=== PATIENT | male | born 1955 | race Caucasian/White ===

== ENCOUNTER 2018-12-09 10:52 | Inpatient (IN) ==
[2018-12-09] MEDS ORDERED: BENZONATATE 100 MG CAPSULE PO ONE (11:44)
[2018-12-09] MEDS ORDERED: methylPREDNISolone 125 MG/2 ML VIAL IV STA ×2 (11:44→13:50)
[2018-12-09] MEDS ORDERED: levoFLOXacin 250 MG TABLET PO STA (11:44)
[2018-12-09] MEDS ORDERED: SODIUM CHLORIDE 0.9% 1000ML 1,000 ML IV SCH (11:45)
[2018-12-09 11:53] LABS: Basophils # (auto) 0.02 K/uL (0-0.2); Basophils % (auto) 0.3 %; Eosinophils # (auto) 0.01 K/uL (0-0.5); Eosinophils % (auto) 0.1 %; Hematocrit (blood only) 46.1 % (42-52); Hemoglobin 15.5 g/dL (14.0-18.0); Immature Granulocytes # (auto) 0.01 K/uL (0.00-0.02); Immature Granulocytes % (auto) 0.1 %; Lymphocytes % (auto) 11.7 %; Mean Corpuscular Hgb Conc 33.6 g/dL (32-36); Mean Corpuscular Volume 88.1 fL (80-100); Mean Platelet Volume 10.7 fL (7.4-10.4); Monocytes # (auto) 0.82 K/uL (0.11-0.59); Monocytes % (auto) 10.7 %; Neutrophils # (auto) 5.91 K/uL (1.4-6.5); Neutrophils % (auto) 77.1 %; Platelet Count 144 K/uL (130-400); RDW Coefficient of Variation 14.3 % (11.5-14.5); RDW Standard Deviation 46.2 fL (36.4-46.3); Red Blood Count 5.23 M/uL (4.7-6.1); White Blood Count 7.67 K/uL (4.8-10.8)
[2018-12-09 12:04] LABS: INR 1.1 (0.9-1.1); Partial Thromboplastin Ratio 1.1; Partial Thromboplastin Time 28.9 Seconds (21.0-31.0)
[2018-12-09 12:07] LABS: Alanine Aminotransferase 21 U/L (12-78); Albumin Level 3.7 gm/dl (3.4-5.0); Aspartate Aminotransferase 24 U/L (15-37); BUN Creatinine Ratio 10.6 (10-20); Blood Urea Nitrogen 13 mg/dl (7-18); Calcium 9.1 mg/dl (8.5-10.1); Carbon Dioxide 26 mmol/L (21-32); Chloride 105 mmol/L (98-107); Creatinine Clr Calc Pharmacy 90.3 ml/min; Est GFR (African American) 73.4; Est GFR (Non-African American) 63.3; Glucose 97 mg/dl (70-99); Potassium 2.9 mmol/L (3.5-5.1); Sodium 135 mmol/L (136-145)
[2018-12-09 12:12] LABS: Albumin Globulin Ratio 1.1 (0.9-2); Alkaline Phosphatase 99 U/L (45-117); Bilirubin,Total 0.5 mg/dl (0.2-1); Globulin 3.5 gm/dl (2.5-4.0); Total Protein 7.2 gm/dl (6.4-8.2); Troponin I < 0.015 ng/ml (0-0.045)
[2018-12-09 12:27] LABS: Influenza B virus by PCR Neg for Influ B (Neg)
--- NOTE | 2018-12-09 12:44 | XRay Report ---
XR chest 1V portable CLINICAL HISTORY: 63 years-old Male presenting with Dyspnea. TECHNIQUE: Portable upright AP view of the chest was obtained. COMPARISON: . FINDINGS: Cardiac silhouette top normal in size. Minimal basilar opacities. No pleural effusion or pneumothorax . Degenerative changes of the thoracic spine. Upper abdomen normal. IMPRESSION: 1. Minimal basilar opacities likely atelectasis or scarring. No convincing evidence of acute cardiop ulmonary disease. Electronically signed by: Karl Turpin M.D. 12/09/2018 12:42 PM
[2018-12-09] MEDS ORDERED: POTASSIUM CHLORIDE 10 MEQ TABCR PO STA (13:37)
[2018-12-09] MEDS ORDERED: OSELTAMIVIR PHOSPHATE 75 MG CAP PO STA (13:49)
[2018-12-09] MEDS ORDERED: ALBUTEROL 0.083% NEBU SOLN 3 ML VIAL NEB STA ×2 (13:50→13:56)
--- NOTE | 2018-12-09 14:24 | History & Physical Report ---
Addendum entered and electronically signed by Tamia Villaseñor PA-C 12/09/18 15:03: Addendum (Blank) Addendum December 09, 2018 15:02 Assessment & Plan: Acute Hypoxic Respiratory Failure secondary to Influenza Original Note: Date of Service December 09, 2018 Assessment & Plan (1) Influenza A: - Admit to med surg - Supportive tx with duonebs, mucinex, tamiflu, O2 prn - Continue home Advair BID and Proair prn - consider outpatient referral/CM assistance for home duoneb, pt does not have one at home but reports this would be beneficial. - Pt received solumedrol 125 mcg in the ER, and 1 dose of Levaquin. Will hold off on further steroids and antibiotics at this time. Pt reports sx are slowing improving since having the steriod and getting a neb treatment at bedside. - Respiratory droplet precautions - CXR reviewed as above. - Currently tachycardic secondary to acute illness, checking EKG. 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 - Request outpatient referral/CM assistance for home duoneb/machine, pt does not have one at home but reports this would be beneficial. 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 Pt notes his symptoms started on morning, and that has progressively had some shortness of breath with minimal activites. He denies fever, chills or sweats. Tolerating PO intake without difficulty. He has no other acute complaint. Pt found to be hypoxic with O2 sat= 85% in the ER, Influenza A positive. Allergies Allergy/AdvReac Type Severity Reaction Status Date / Time No Known Allergies Allergy Unverified 12/09/18 12:02 Home Medications Home Medications Medication Instructions Recorded Confirmed Type fluticasone-salmeterol [Advair 1 puff INHALATION BID 08/21/18 12/09/18 History Diskus] hydrochlorothiazide 1 tab PO DAILY 08/21/18 12/09/18 History omeprazole 1 cap PO DAILY 08/21/18 12/09/18 History albuterol sulfate [ProAir HFA] 1 puff INHALATION QID PRN 12/09/18 12/09/18 History Past Med/Surg History Medical History Acute respiratory failure with hypoxia Influenza A COPD (chronic obstructive pulmonary disease) GERD (gastroesophageal reflux disease) (Chronic) Asthma (Chronic) Hypertension (Chronic) Family History Other Asthma GERD (gastroesophageal reflux disease) Hypertension Social History marital status: Current Living Situation: Spouse and Family current occupational status: retired Other Information That Helps Us Care for You: No Feels Safe at Home: Yes Safety Concerns: Feels Safe At This Time Smoking Status: Never smoker Tobacco Type: smokeless tobacco Do You Dip or Chew Tobacco: Yes (1/3 can a day) Second Hand Exposure: No Tobacco Cessation Education Requested by Patient: No Hx Alcohol Use: No Hx Substance Use: No Beliefs That Will Affect Care: None Preferred Language: Malay Communication Ability: Effective Fast Food Server Required: No Review of Systems Constitutional: no fever, no chills, no sweats and no fatigue Eyes: no diplopia and no worsening vision Ear, Nose, Mouth, Throat: no dizziness, no nasal discharge, no facial pain and no sore throat Respiratory: as per Subjective / HPI, + cough, + dyspnea and + dyspnea on exertion; no hemoptysis and no wheezing Cardiovascular: no chest pain, no palpitations, no lightheadedness and no syncope Gastrointestinal: no nausea, no vomiting and no constipation no diarrhea Genitourinary (Male): no dysuria, no urinary frequency, no urinary hesitancy and no hematuria Musculoskeletal: no back pain, no joint pain, no swelling and no muscle weakness Integumentary: no rash, no lesions and no wounds Neurologic: no gait abnormality, no falls, no numbness, no dizziness and no syncope Psychiatric: no depression and no anxiety Endocrine: no fatigue Physical Exam 2 Vital Signs (Past 24 Hours): Last Vital Signs Temp 37.2 C 12/09/18 11:05 Pulse 102 H 12/09/18 13:37 Resp 20 12/09/18 13:37 BP 126/84 12/09/18 13:37 Pulse Ox 93 12/09/18 13:41 Physical Exam: General: awake, alert, mild distress Head: Normocephalic, atraumatic ENT: PERRL, EOMI, no pharyngeal exudate, mucous membranes moist Chest: + on 2 L via NC, using accessory muscles, + diminished breaths sounds throughout with faint crackles in the RLL. Cardiac: Regular rhythm, Tachycardic in low 100s at bedside, no murmur, no JVD, normal peripheral pulses, good capillary refill Abdominal: NABS x 4 quadrants, soft, nontender to palpation, no rebound, guarding or tenderness Extremities: Normal inspection, no peripheral edema or erythema, calfs nontender to palpation Psych: Normal mood and affect Neuro: AAO x 3, strength intact bilaterally and related 5/5, no motor deficits, speech is clear, no peripheral sensory deficits Constitutional: WD/WN, vitals as above Eyes: normal visual carrillo by confrontation and + anicteric sclerae Neck: normal visual inspection and trachea midline Respiratory: no respiratory distress congestive sounds Cardiovascular: Rate/Rhythm: regular rate and regular rhythm Gastrointestinal (Abdomen): Inspection/Auscultation: abdomen not distended Percussion/Palpation: abdomen soft; abdomen nontender Musculoskeletal: Head/Neck/Chest: normocephalic and head atraumatic negative for edema, peripheral pulses intact Skin: no rashes, warm and dry Neurologic: awake; not confused Speech / Cognition: normal speech Psychiatric: A+Ox3, euthymic affect Results & Data Diagnostic Findings XR chest 1V portable CLINICAL HISTORY: 63 years-old Male presenting with Dyspnea. TECHNIQUE: Portable upright AP view of the chest was obtained. COMPARISON: . FINDINGS: Cardiac silhouette top normal in size. Minimal basilar opacities. No pleural effusion or pneumothorax. Degenerative changes of the thoracic spine. Upper abdomen normal. IMPRESSION: 1. Minimal basilar opacities likely atelectasis or scarring. No convincing evidence of acute cardiopulmonary disease. Code Status & VTE Plan Code Status DNR Supervising Physician Co-Signing Physician Notes Pt seen and examined by me. Denies chest pain or current SOB. Pt did have SOB earlier but this is much better. Still with cough. Tolerating PO without issue. Agree with HPI/ROS as noted by PA See above for my exam in PE section Agree with plan as outlined above Flu A +, management as above Hx of COPD related to occupational exposure, no current exacerbation, prevention as above Hypoxic on RA
[2018-12-09 15:02] LABS: Appearance Urine Clear (Clear); Bilirubin Urine Negative (Negative); Color Urine Yellow; Glucose Urine UA Negative (Negative); Ketones Urine Negative (Negative); Leukocyte Esterase Urine Negative (Negative); Nitrite Urine Negative (Negative); Protein Urine Negative (Negative); Specific Gravity Urine 1.011 (1.000-1.030); Urobilinogen Urine Negative (Negative); pH Urine 5.5 (4.5-7.5)
[2018-12-09] MEDS ORDERED: ACETAMINOPHEN 325 MG TAB PO PRN (16:02)
[2018-12-09] MEDS ORDERED: ONDANSETRON INJ 2 MG/ML 2 ML VIAL IV PRN (16:02)
[2018-12-09] MEDS: ALBUT/IPRATROP 3MG/0.5MG NEB 3 ML VIAL NEB SCH ×3 (16:21→23:10)
--- NOTE | 2018-12-09 17:25 | Emergency Department Note ---
Entered by Ninfa Ingram acting as a scribe for History of Present Illness General Chief complaint: Cough Stated complaint: CHRONIC COUGH,LOW FEVR,ARDON Source: patient Mode of arrival: ambulatory Limitations: no limitations History of Present Illness Provider complaint: Cough Onset (ago): day(s) (3-4 days ago) Location: mouth Radiation: non-radiation Pain Consistency: + other (worsening) Maximum Pain Intensity: 8 Quality: + other (cough with occasional clear phlegm) Relieved By: + none Associated symptoms: + headaches (throbbing) and + other (Additional symptoms: rhinorrhea, sore throat, abdominal pain. Denies: ear pain) Treatments prior to arrival: none The patient is a 63 year old male with a history of COPD, asthma, GERD, and hypertension who presents to the Emergency Room with complaints of a worsening cough starting 3-4 days ago. The patient reports that his cough started in his chest and has been accompanied by occasional clear phlegm, rhinorrhea, a sore throat, throbbing headaches, and abdominal pain secondary to coughing. He denies any ear pain and recent sick contact. Per , the patient has never smoked. No other exacerbating or remitting factors. Patient does note that exertion makes the shortness of breath worse. Home Medications Home Medications Medication Instructions Recorded Confirmed Type fluticasone-salmeterol [Advair 1 puff INHALATION BID 08/21/18 12/09/18 History Diskus] hydrochlorothiazide 1 tab PO DAILY 08/21/18 12/09/18 History omeprazole 1 cap PO DAILY 08/21/18 12/09/18 History albuterol sulfate [ProAir HFA] 1 puff INHALATION QID PRN 12/09/18 12/09/18 History Allergies Allergy/AdvReac Type Severity Reaction Status Date / Time No Known Allergies Allergy Unverified 12/09/18 12:02 Past Med/Surg History Medical History Acute respiratory failure with hypoxia Influenza A COPD (chronic obstructive pulmonary disease) GERD (gastroesophageal reflux disease) (Chronic) Asthma (Chronic) Hypertension (Chronic) Family History Other Asthma GERD (gastroesophageal reflux disease) Hypertension Social History marital status: Current Living Situation: Spouse and Family current occupational status: retired Other Information That Helps Us Care for You: No Feels Safe at Home: Yes Safety Concerns: Feels Safe At This Time Smoking Status: Never smoker Tobacco Type: smokeless tobacco Do You Dip or Chew Tobacco: Yes (1/3 can a day) Second Hand Exposure: No Tobacco Cessation Education Requested by Patient: No Hx Alcohol Use: No Hx Substance Use: No Beliefs That Will Affect Care: None Preferred Language: Kuwaiti Communication Ability: Effective 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 and A total of 10 systems reviewed and were otherwise negative Physical Exam Vital Signs Vital Signs - 24 hr 12/09/18 11:05 12/09/18 11:23 12/09/18 11:24 Temperature 37.2 C Temperature Source Oral Sepsis Recent Fever Within 48 Hours No Sepsis New/Unexplained Change in Mental Status No Sepsis Action Taken by Nursing No Action Required Pulse Rate 108 H 104 H Pulse Rate [Finger] Pulse Rhythm [Finger] Pulse Strength [Finger] Respiratory Rate 20 Respiratory Effort / Characteristics Non-Labored Respiratory Depth Normal Respiratory Pattern Blood Pressure 134/90 126/84 Blood Pressure [Right Arm] Blood Pressure Mean 104 98 Blood Pressure Mean [Right Arm] Blood Pressure Position [Right Arm] Pulse Oximetry 93 Oxygen Delivery Method Room Air Oxygen Flow Rate 12/09/18 11:30 12/09/18 11:40 12/09/18 11:50 Temperature Temperature Source Sepsis Recent Fever Within 48 Hours Sepsis New/Unexplained Change in Mental Status Sepsis Action Taken by Nursing Pulse Rate 105 H 104 H 98 H Pulse Rate [Finger] Pulse Rhythm [Finger] Pulse Strength [Finger] Respiratory Rate Respiratory Effort / Characteristics Respiratory Depth Respiratory Pattern Blood Pressure Blood Pressure [Right Arm] Blood Pressure Mean Blood Pressure Mean [Right Arm] Blood Pressure Position [Right Arm] Pulse Oximetry 93 91 90 Oxygen Delivery Method Oxygen Flow Rate 12/09/18 11:59 12/09/18 12:00 12/09/18 12:10 Temperature Temperature Source Sepsis Recent Fever Within 48 Hours Sepsis New/Unexplained Change in Mental Status Sepsis Action Taken by Nursing Pulse Rate 102 H 88 Pulse Rate [Finger] 101 H Pulse Rhythm [Finger] Pulse Strength [Finger] Respiratory Rate 20 43 H Respiratory Effort / Characteristics Respiratory Depth Respiratory Pattern Blood Pressure Blood Pressure [Right Arm] 126/84 Blood Pressure Mean Blood Pressure Mean [Right Arm] 98 Blood Pressure Position [Right Arm] Pulse Oximetry 91 90 91 Oxygen Delivery Method Room Air Oxygen Flow Rate 12/09/18 12:20 12/09/18 12:30 12/09/18 12:40 Temperature Temperature Source Sepsis Recent Fever Within 48 Hours Sepsis New/Unexplained Change in Mental Status Sepsis Action Taken by Nursing Pulse Rate 92 H 93 H 95 H Pulse Rate [Finger] Pulse Rhythm [Finger] Pulse Strength [Finger] Respiratory Rate Respiratory Effort / Characteristics Respiratory Depth Respiratory Pattern Blood Pressure Blood Pressure [Right Arm] Blood Pressure Mean Blood Pressure Mean [Right Arm] Blood Pressure Position [Right Arm] Pulse Oximetry 91 90 90 Oxygen Delivery Method Oxygen Flow Rate 12/09/18 12:50 12/09/18 12:56 12/09/18 13:00 Temperature Temperature Source Sepsis Recent Fever Within 48 Hours Sepsis New/Unexplained Change in Mental Status Sepsis Action Taken by Nursing Pulse Rate 104 H 96 H Pulse Rate [Finger] 102 H Pulse Rhythm [Finger] Pulse Strength [Finger] Respiratory Rate 20 Respiratory Effort / Characteristics Respiratory Depth Respiratory Pattern Blood Pressure Blood Pressure [Right Arm] 126/84 Blood Pressure Mean Blood Pressure Mean [Right Arm] 98 Blood Pressure Position [Right Arm] Pulse Oximetry 92 91 88 L Oxygen Delivery Method Room Air Oxygen Flow Rate 12/09/18 13:10 12/09/18 13:20 12/09/18 13:30 Temperature Temperature Source Sepsis Recent Fever Within 48 Hours Sepsis New/Unexplained Change in Mental Status Sepsis Action Taken by Nursing Pulse Rate 100 H 96 H 97 H Pulse Rate [Finger] Pulse Rhythm [Finger] Pulse Strength [Finger] Respiratory Rate 13 15 18 Respiratory Effort / Characteristics Respiratory Depth Respiratory Pattern Blood Pressure Blood Pressure [Right Arm] Blood Pressure Mean Blood Pressure Mean [Right Arm] Blood Pressure Position [Right Arm] Pulse Oximetry 88 L 87 L 87 L Oxygen Delivery Method Oxygen Flow Rate 12/09/18 13:37 12/09/18 13:40 12/09/18 13:41 Temperature Temperature Source Sepsis Recent Fever Within 48 Hours Sepsis New/Unexplained Change in Mental Status Sepsis Action Taken by Nursing Pulse Rate 103 H Pulse Rate [Finger] 102 H Pulse Rhythm [Finger] Pulse Strength [Finger] Respiratory Rate 20 13 Respiratory Effort / Characteristics Respiratory Depth Respiratory Pattern Blood Pressure Blood Pressure [Right Arm] 126/84 Blood Pressure Mean Blood Pressure Mean [Right Arm] 98 Blood Pressure Position [Right Arm] Pulse Oximetry 94 91 93 Oxygen Delivery Method Room Air Nasal Cannula Oxygen Flow Rate 3 12/09/18 13:50 12/09/18 14:00 12/09/18 14:10 Temperature Temperature Source Sepsis Recent Fever Within 48 Hours Sepsis New/Unexplained Change in Mental Status Sepsis Action Taken by Nursing Pulse Rate 95 H 92 H 93 H Pulse Rate [Finger] Pulse Rhythm [Finger] Pulse Strength [Finger] Respiratory Rate 21 25 H 14 Respiratory Effort / Characteristics Respiratory Depth Respiratory Pattern Blood Pressure Blood Pressure [Right Arm] Blood Pressure Mean Blood Pressure Mean [Right Arm] Blood Pressure Position [Right Arm] Pulse Oximetry 90 90 93 Oxygen Delivery Method Oxygen Flow Rate 12/09/18 14:20 12/09/18 14:30 12/09/18 14:40 Temperature Temperature Source Sepsis Recent Fever Within 48 Hours Sepsis New/Unexplained Change in Mental Status Sepsis Action Taken by Nursing Pulse Rate 99 H 99 H 92 H Pulse Rate [Finger] Pulse Rhythm [Finger] Pulse Strength [Finger] Respiratory Rate 9 L 16 26 H Respiratory Effort / Characteristics Respiratory Depth Respiratory Pattern Blood Pressure Blood Pressure [Right Arm] Blood Pressure Mean Blood Pressure Mean [Right Arm] Blood Pressure Position [Right Arm] Pulse Oximetry 94 94 91 Oxygen Delivery Method Oxygen Flow Rate 12/09/18 14:50 12/09/18 15:00 12/09/18 15:23 Temperature Temperature Source Sepsis Recent Fever Within 48 Hours Sepsis New/Unexplained Change in Mental Status Sepsis Action Taken by Nursing Pulse Rate 90 98 H Pulse Rate [Finger] Pulse Rhythm [Finger] Pulse Strength [Finger] Respiratory Rate 21 22 18 Respiratory Effort / Characteristics Respiratory Depth Respiratory Pattern Blood Pressure Blood Pressure [Right Arm] Blood Pressure Mean Blood Pressure Mean [Right Arm] Blood Pressure Position [Right Arm] Pulse Oximetry 91 93 92 Oxygen Delivery Method Nasal Cannula Oxygen Flow Rate 3 12/09/18 15:24 12/09/18 16:02 12/09/18 16:21 Temperature 36.7 C Temperature Source Oral Sepsis Recent Fever Within 48 Hours Sepsis New/Unexplained Change in Mental Status Sepsis Action Taken by Nursing Pulse Rate Pulse Rate [Finger] 96 H 90 89 Pulse Rhythm [Finger] Pulse Strength [Finger] Respiratory Rate 18 20 16 Respiratory Effort / Characteristics Non-Labored Spontaneous Respiratory Depth Respiratory Pattern Blood Pressure Blood Pressure [Right Arm] 101/68 124/76 Blood Pressure Mean Blood Pressure Mean [Right Arm] 79 92 Blood Pressure Position [Right Arm] Sitting Pulse Oximetry 92 95 94 Oxygen Delivery Method Nasal Cannula Nasal Cannula Room Air Oxygen Flow Rate 3 3 12/09/18 16:44 Temperature 36.7 C Temperature Source Oral Sepsis Recent Fever Within 48 Hours Sepsis New/Unexplained Change in Mental Status Sepsis Action Taken by Nursing Pulse Rate Pulse Rate [Finger] 89 Pulse Rhythm [Finger] Regular Pulse Strength [Finger] Normal Respiratory Rate 18 Respiratory Effort / Characteristics Spontaneous SOB on Exertion Respiratory Depth Normal Respiratory Pattern Regular Blood Pressure Blood Pressure [Right Arm] 124/76 Blood Pressure Mean Blood Pressure Mean [Right Arm] 92 Blood Pressure Position [Right Arm] Sitting Pulse Oximetry 93 Oxygen Delivery Method Nasal Cannula Oxygen Flow Rate 2 GENERAL: Sitting up in bed, alert, well appearing, well nourished, no distress, non-toxic, dry persistent cough EYE EXAM: normal conjunctiva. PERRL and EOM's grossly intact. OROPHARYNX: no exudate, no erythema, lips, buccal mucosa, and tongue normal and mucous membranes are moist NECK: supple, no nuchal rigidity, no adenopathy, non-tender LUNGS: Faint wheezing bilaterally. Normal chest wall mechanics HEART: no murmurs, S1 normal and S2 normal, tachycardic ABDOMEN: abdomen soft, non-tender, normo-active bowel, sounds, no masses, no rebound or guarding. BACK: Back is symmetrical on inspection and there is no deformity, no midline tenderness, no CVA tenderness. SKIN: no rashes and no bruising UPPER EXTREMITIES: upper extremities are grossly normal. LOWER EXTREMITIES: No pitting edema. Calves equal bilaterally NEURO EXAM: Normal sensorium, cranial nerves II-XII grossly intact, normal speech, no gross weakness of arms, no gross weakness of legs. Gross sensation intact. Course ED COURSE: Vital signs were reviewed and were normal. The patients medical record was reviewed The above diagnostic studies were performed and reviewed. ED treatments and interventions as stated above. 1139: The patient was evaluated in room B7. A complete history and physical examination was performed. 1338: I updated the patient at bedside at this time. 1355: I [facility] the [facility] will evaluate the patient for further management. 1358: Upon reevaluation, the patient is resting. I discussed my findings with the patient and he understands and agrees with the treatment plan. Based on the patients age, coexisting illnesses, exam and lab findings the decision to treat as an inpatient was made. The patient remained stable while under my care. The patient will be evaluated for further management. Consultations Consultation #1: I reviewed the patient's case with Rafael Salazar. Dr. Hernandez will evaluate the patient for further management. Time: 13:55 Administered Medications Albuterol (Duoneb) 3 ml NEB Q4R BAIRON Stop: 01/08/19 16:01 Last Admin: 12/09/18 16:21 Dose: 3 ml Discontinued Medications Albuterol (Ventolin 0.083% 2.5mg/3ml) 2.5 mg NEB NOW STA Stop: 12/09/18 13:51 Last Admin: 12/09/18 14:04 Dose: 2.5 mg Albuterol (Ventolin 0.083% 2.5mg/3ml) 2.5 mg NEB NOW STA Stop: 12/09/18 13:57 Last Admin: 12/09/18 14:09 Dose: Not Given Benzonatate (Tessalon Perle) 100 mg PO NOW ONE Stop: 12/09/18 11:45 Last Admin: 12/09/18 11:57 Dose: 100 mg Sodium Chloride (Nss 1000ml) 1,000 mls @ 999 mls/hr IV .Q1H1M BAIRON Stop: 12/09/18 12:45 Last Infusion: 12/09/18 13:04 Dose: 0 mls/hr Admin: 12/09/18 11:56 Dose: 999 mls/hr Levofloxacin (Levaquin) 750 mg PO NOW STA Stop: 12/09/18 11:45 Last Admin: 12/09/18 11:57 Dose: 750 mg Methylprednisolone (Solumedrol) 125 mg IV NOW STA Stop: 12/09/18 11:45 Last Admin: 12/09/18 11:57 Dose: 125 mg Oseltamivir Phosphate (Tamiflu) 75 mg PO NOW STA Stop: 12/09/18 13:50 Last Admin: 12/09/18 14:03 Dose: 75 mg Potassium Chloride (Klor-Con M10) 40 meq PO NOW STA Stop: 12/09/18 13:38 Last Admin: 12/09/18 14:03 Dose: 40 meq Medical Decision Making Differential Diagnosis Differential diagnosis: Etiologies such as infections, reactive airway disease, COPD, pneumonia, pleural effusion, pulmonary edema, ARDS, pneumothorax, CHF, cardiac ischemia, cardiac tamponade, dysrhythmia, anemia, pulmonary embolism, musculoskeletal, gastrointestinal process, as well as others were entertained. Medical Records Attestation: I reviewed the patient's medical records. Home Medications Current Medication List: was personally reviewed by me Laboratory Data Attestation: I reviewed the patient's lab results. Result diagrams: 12/09/18 11:30 12/09/18 11:30 Lab Results 12/09/18 12/09/18 12/09/18 Range/Units 11:30 11:30 11:30 WBC 7.67 (4.8-10.8) K/uL RBC 5.23 (4.7-6.1) M/uL Hgb 15.5 (14.0-18.0) g/dL Hct 46.1 (42-52) % MCV 88.1 (80-100) fL MCH 29.6 (25-34) pg MCHC 33.6 (32-36) g/dL RDW Std Deviation 46.2 (36.4-46.3) fL RDW Coeff of Mason 14.3 (11.5-14.5) % Plt Count 144 (130-400) K/uL MPV 10.7 H (7.4-10.4) fL Immature Gran % (Auto) 0.1 % Neut % (Auto) 77.1 % Lymph % (Auto) 11.7 % Mccormick % (Auto) 10.7 % Eos % (Auto) 0.1 % Baso % (Auto) 0.3 % Immature Gran # (Auto) 0.01 (0.00-0.02) K/uL Neut # (Auto) 5.91 (1.4-6.5) K/uL Lymph # (Auto) 0.90 L (1.2-3.4) K/uL Mccormick # (Auto) 0.82 H (0.11-0.59) K/uL Eos # (Auto) 0.01 (0-0.5) K/uL Baso # (Auto) 0.02 (0-0.2) K/uL PT 11.0 (9.0-12.0) Seconds INR 1.1 (0.9-1.1) APTT 28.9 (21.0-31.0) Seconds PTT Ratio 1.1 Sodium (136-145) mmol/L Potassium (3.5-5.1) mmol/L Chloride (98-107) mmol/L Carbon Dioxide (21-32) mmol/L Anion Gap (3-11) BUN (7-18) mg/dl Creatinine (0.6-1.4) mg/dl Est Cr Clr Drug Dosing ml/min Est GFR ( Amer) Est GFR (Non-Af Amer) BUN/Creatinine Ratio (10-20) Glucose (70-99) mg/dl Calcium (8.5-10.1) mg/dl Total Bilirubin (0.2-1) mg/dl AST (15-37) U/L ALT (12-78) U/L Alkaline Phosphatase (45-117) U/L Troponin I Cancelled Total Protein (6.4-8.2) gm/dl Albumin (3.4-5.0) gm/dl Globulin (2.5-4.0) gm/dl Albumin/Globulin Ratio (0.9-2) Urine Color Urine Appearance (Clear) Urine pH (4.5-7.5) Ur Specific [place] (1.000-1.030) Urine Protein (Negative) Urine Glucose (UA) (Negative) Urine Ketones (Negative) Urine Blood (Negative) Urine Nitrite (Negative) Urine Bilirubin (Negative) Urine Urobilinogen (Negative) Ur Leukocyte Esterase (Negative) Influenza Type A (PCR) (Neg) Influenza Type B (PCR) (Neg) 12/09/18 12/09/18 12/09/18 Range/Units 11:30 11:30 14:30 WBC (4.8-10.8) K/uL RBC (4.7-6.1) M/uL Hgb (14.0-18.0) g/dL Hct (42-52) % MCV (80-100) fL MCH (25-34) pg MCHC (32-36) g/dL RDW Std Deviation (36.4-46.3) fL RDW Coeff of Mason (11.5-14.5) % Plt Count (130-400) K/uL MPV (7.4-10.4) fL Immature Gran % (Auto) % Neut % (Auto) % Lymph % (Auto) % Mccormick % (Auto) % Eos % (Auto) % Baso % (Auto) % Immature Gran # (Auto) (0.00-0.02) K/uL Neut # (Auto) (1.4-6.5) K/uL Lymph # (Auto) (1.2-3.4) K/uL M[place]ick # (Auto) (0.11-0.59) K/uL Eos # (Auto) (0-0.5) K/uL Baso # (Auto) (0-0.2) K/uL PT (9.0-12.0) Seconds INR (0.9-1.1) APTT (21.0-31.0) Seconds PTT Ratio Sodium 135 L (136-145) mmol/L Potassium 2.9 L (3.5-5.1) mmol/L Chloride 105 (98-107) mmol/L Carbon Dioxide 26 (21-32) mmol/L Anion Gap 4.0 (3-11) BUN 13 (7-18) mg/dl Creatinine 1.21 (0.6-1.4) mg/dl Est Cr Clr Drug Dosing 90.3 ml/min Est GFR ( Amer) 73.4 Est GFR (Non-Af Amer) 63.3 BUN/Creatinine Ratio 10.6 (10-20) Glucose 97 (70-99) mg/dl Calcium 9.1 (8.5-10.1) mg/dl Total Bilirubin 0.5 (0.2-1) mg/dl AST 24 (15-37) U/L ALT 21 (12-78) U/L Alkaline Phosphatase 99 (45-117) U/L Troponin I < 0.015 Total Protein 7.2 (6.4-8.2) gm/dl Albumin 3.7 (3.4-5.0) gm/dl Globulin 3.5 (2.5-4.0) gm/dl Albumin/Globulin Ratio 1.1 (0.9-2) Urine Color Yellow Urine Appearance Clear (Clear) Urine pH 5.5 (4.5-7.5) Ur Specific [place] 1.011 (1.000-1.030) Urine Protein Negative (Negative) Urine Glucose (UA) Negative (Negative) Urine Ketones Negative (Negative) Urine Blood Negative (Negative) Urine Nitrite Negative (Negative) Urine Bilirubin Negative (Negative) Urine Urobilinogen Negative (Negative) Ur Leukocyte Esterase Negative (Negative) Influenza Type A (PCR) Pos for Influ A A* (Neg) Influenza Type B (PCR) Neg for Influ B (Neg) ECG Data Attestation: I personally reviewed and interpreted this ECG as follows: Indication: other (cough) Rate (beats per minute): 101 Rhythm: sinus tachycardia Findings: + other (poor baseline) and + left axis deviation Blood Pressure Blood Pressure Findings: Normal blood pressure MDM Narrative Patient is a 63-year-old male who presents the ER for cough, congestion sore throat and shortness of breath for the past 3-4 days. Upon presentation is found to be hypoxic at 85-89%. He was placed on 2 L nasal cannula. 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 He was given nebs, steroids and antibiotics. CBC shows no significant leukocytosis or anemia. INR was unremarkable. BMP with a mild hypokalemia. LFTs troponin were normal. UA was negative. He was positive for influenza. He was given Tamiflu. He was updated bedside along with his . Discussed with the hospitalist and patient was admitted with hypoxia secondary to influenza A. Of note chest x- ray showed some atelectasis but no focal infiltrate. Impression & Plan Influenza, Hypoxia Discharge Plan Visit Data *Final* Discharge Date/Time: 12/09/18 15:23 Chief Complaint: Cough Stated Complaint: CHRONIC COUGH,LOW FEVR,ARDON ED Provider: Luisito Alarcon Discharge Problem: Influenza, Hypoxia Patient Disposition: Admitted As Inpatient Discharge Instructions Interventions: ED Discharge Assessment Last Done: 12/09/18 15:23 The scribe's documentation has been prepared under my direction and personally reviewed by me in its entirety. I confirm that the note above accurately reflects all work, treatment, procedures, and medical decision making performed by me.
[2018-12-09] MEDS: ENOXAPARIN INJ 40 MG/0.4 ML SYR SQ SCH (18:24)
[2018-12-09] MEDS ORDERED: PNEUMOCOCCAL ADMINISTRATION CHARGE ONE (18:30)
[2018-12-09] MEDS ORDERED: PNEUMOCOCCAL POLYSACCHARIDES 25 MCG/0.5 ML VIAL/SYR IM ONE (18:30)
[2018-12-09] MEDS: OSELTAMIVIR PHOSPHATE 75 MG CAP PO SCH (20:11)
[2018-12-09] MEDS: guaiFENesin 600 MG TABCR PO SCH (20:11)
[2018-12-10] MEDS: ALBUT/IPRATROP 3MG/0.5MG NEB 3 ML VIAL NEB SCH ×7 (03:15→23:32)
[2018-12-10] MEDS: guaiFENesin 600 MG TABCR PO SCH ×2 (08:25→20:22)
[2018-12-10] MEDS: OSELTAMIVIR PHOSPHATE 75 MG CAP PO SCH ×2 (08:25→20:22)
[2018-12-10 09:03] LABS: Hematocrit (blood only) 41.8 % (42-52); Hemoglobin 14.4 g/dL (14.0-18.0); Mean Corpuscular Hgb Conc 34.4 g/dL (32-36); Mean Corpuscular Volume 88.4 fL (80-100); Mean Platelet Volume 10.1 fL (7.4-10.4); Platelet Count 147 K/uL (130-400); RDW Coefficient of Variation 14.3 % (11.5-14.5); RDW Standard Deviation 46.7 fL (36.4-46.3); Red Blood Count 4.73 M/uL (4.7-6.1); White Blood Count 6.59 K/uL (4.8-10.8)
[2018-12-10] MEDS: FLUTICASONE/SALMETEROL (ADVAIR) 500/50 INH 14 PUFF INH SCH ×2 (09:34→20:02)
[2018-12-10] MEDS: PANTOprazole 40 MG TAB PO SCH (09:34)
[2018-12-10 09:36] LABS: BUN Creatinine Ratio 17.5 (10-20); Calcium 9.2 mg/dl (8.5-10.1); Est GFR (African American) 78.1; Est GFR (Non-African American) 67.4; Potassium 2.9 mmol/L (3.5-5.1)
[2018-12-10] MEDS: POTASSIUM CHLORIDE 20 MEQ TABCR PO SCH ×2 (11:30→20:23)
[2018-12-10] MEDS ORDERED: BENZONATATE 100 MG CAPSULE PO PRN (15:53)
[2018-12-10] MEDS: predniSONE 20 MG TAB PO SCH (15:58)
--- NOTE | 2018-12-10 16:31 | Hospitalist Progress Note ---
Date of Service December 10, 2018 Assessment & Plan (1) Acute respiratory failure with hypoxia: - Has been requiring 3L via NC; is stable on room air at home. - CXR on admission showed minimal basilar opacities, likely atelectasis vs. scarring. - Will continue to monitor O2 requirements. - Start Prednisone 40 mg PO daily in setting of asthma for acute inflammation; did receive Solu-medrol 125 mg IV in ER. (2) Influenza A: - +Influenza A in ER. - Started Tamiflu 75 mg PO BID. - Mucinex 1200 mg PO BID. - Duonebs QID scheduled. 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 - Will need duoneb machine at discharge, discuss with field case manager. - Continue home Advair BID with Duonebs QID as inpt. - Start Prednisone 40 mg PO daily. (4) GERD (gastroesophageal reflux disease): - Continue Protonix 40 mg qAM. (5) Hypertension: - Hold HCTZ in setting of hypokalemia. (6) Hypokalemia: - K level 2.9 -- ordered KCl 40 mEq BID. - Repeat level in AM. (7) DVT prophylaxis: - Lovenox subQ daily. Dispo: Med/surg; discharge pending improvement in hypoxia. Will need f/u with PCP and duonebs arranged at home. Supervising Physician Co-Signing Physician Notes PA Supervision Note: I did not personally see or examine the patient today, but I verified all jerez points of SABAS Licona's assessment and plan with the following exceptions/ additions: None Subjective Pt. is doing well overall. He has a cough, non productive. Headache, muscle aches now resolved. He is still requiring 3L via NC. Denies SOB. Pt. does not require oxygen at home. Will continue to monitor. Review of Systems All systems reviewed & are unremarkable except as noted in HPI & below Constitutional: no fever and no chills Respiratory: + cough; no dyspnea and no dyspnea on exertion Cardiovascular: no chest pain, no palpitations and no edema Gastrointestinal: no abdominal pain, no nausea and no constipation Genitourinary (Male): no difficulty urinating Musculoskeletal: no myalgia Neurologic: no headache(s) Physical Exam 2 Vital Signs (Past 24 Hours): Last Vital Signs Temp 36.5 C 02/03/19 15:11 Pulse 75 12/10/18 15:22 Resp 18 12/10/18 15:22 BP 104/69 12/10/18 15:11 Pulse Ox 95 12/10/18 15:22 Physical Exam: General: Resting comfortably in no apparent distress HEENT: NC/AT; PERRLA with EOMI; [address] conjunctiva, MMM. Neck: Supple and nontender Cardiac: RRR w/o murmurs, gallops or rubs Lungs: on 3L via NC; clear throughout Abdomen: Bowel normoactive X 4; Nontender to palpation Extremities: Warm. No edema present Neuro: No focal weakness Skin: No rash Results & Data Laboratory Results 12/10/18 12/10/18 12/10/18 Range/Units 08:51 08:51 08:51 WBC 6.59 (4.8-10.8) K/uL RBC 4.73 (4.7-6.1) M/uL Hgb 14.4 (14.0-18.0) g/dL Hct 41.8 L (42-52) % MCV 88.4 (80-100) fL MCH 30.4 (25-34) pg MCHC 34.4 (32-36) g/dL RDW Std Deviation 46.7 H (36.4-46.3) fL RDW Coeff of Mason 14.3 (11.5-14.5) % Plt Count 147 (130-400) K/uL MPV 10.1 (7.4-10.4) fL Sodium 139 (136-145) mmol/L Potassium 2.9 L (3.5-5.1) mmol/L Chloride 102 (98-107) mmol/L Carbon Dioxide 27 (21-32) mmol/L Anion Gap 10.0 (3-11) BUN 20 H D (7-18) mg/dl Creatinine 1.15 (0.6-1.4) mg/dl Est Cr Clr Drug Dosing 95.0 ml/min Est GFR ( Amer) 78.1 Est GFR (Non-Af Amer) 67.4 BUN/Creatinine Ratio 17.5 (10-20) Glucose 126 H (70-99) mg/dl Calcium 9.2 (8.5-10.1) mg/dl Magnesium 2.2 (1.8-2.4) mg/dl
[2018-12-10] MEDS: ENOXAPARIN INJ 40 MG/0.4 ML SYR SQ SCH (18:22)
[2018-12-11] MEDS: ALBUT/IPRATROP 3MG/0.5MG NEB 3 ML VIAL NEB SCH ×3 (04:07→11:21)
[2018-12-11 07:06] LABS: BUN Creatinine Ratio 21.6 (10-20); Calcium 9.7 mg/dl (8.5-10.1); Creatinine Clr Calc Pharmacy 97.6 ml/min; Est GFR (African American) 80.6; Est GFR (Non-African American) 69.5; Magnesium 2.1 mg/dl (1.8-2.4); Potassium 3.7 mmol/L (3.5-5.1)
[2018-12-11] MEDS: predniSONE 20 MG TAB PO SCH (07:50)
[2018-12-11] MEDS: guaiFENesin 600 MG TABCR PO SCH (07:50)
[2018-12-11] MEDS: POTASSIUM CHLORIDE 20 MEQ TABCR PO SCH (07:51)
[2018-12-11] MEDS: FLUTICASONE/SALMETEROL (ADVAIR) 500/50 INH 14 PUFF INH SCH (07:52)
[2018-12-11] MEDS: OSELTAMIVIR PHOSPHATE 75 MG CAP PO SCH (07:53)
[2018-12-11] MEDS: PANTOprazole 40 MG TAB PO SCH (07:53)
--- NOTE | 2018-12-12 18:36 | Discharge Summary ---
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 Pt notes his symptoms started on morning, and that has progressively had some shortness of breath with minimal activites. He denies fever, chills or sweats. Tolerating PO intake without difficulty. He has no other acute complaint. Pt found to be hypoxic with O2 sat= 85% in the ER, Influenza A positive. Principal Diagnosis Influenza A; mild asthma exacerbation Discharge Exam Constitutional WD/WN, vitals as above Eyes + anicteric sclerae ENMT Ears: no hearing impairment Nose: + nasal discharge Throat: uvula midline; no posterior oropharynx abnormality Neck trachea midline Respiratory normal respiratory effort, lungs clear to auscultation Cardiovascular RRR, no murmur, no edema Gastrointestinal (Abdomen) Inspection/Auscultation: normal bowel sounds Percussion/Palpation: abdomen soft; abdomen nontender Musculoskeletal Head/Neck/Chest: normocephalic, head atraumatic and neck supple Skin no rashes, warm and dry Neurologic moves all extremities Psychiatric A+Ox3, euthymic affect Discharge Data Allergies Allergy/AdvReac Type Severity Reaction Status Date / Time No Known Allergies Allergy Unverified 12/09/18 12:02 Consultations 12/09/18 13:55 ED Decision to Admit Stat Hospital Course (1) Acute respiratory failure with hypoxia: -This was secondary to influenza A possibly a mild asthma exacerbation -Has been successfully weaned to room air with appropriate oxygenation even after ambulation - CXR on admission showed minimal basilar opacities, likely atelectasis vs. 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 (5) Hypertension: -Continue HCTZ daily Total Time Total Time Spent Total Time Spent (In Minutes): Greater than 30 minutes Discharge Plan Discharge Items Patient Disposition: Home - Self-Care Reason For Visit: INFLUENZA A Discharge Diagnosis: Influenza Discharge Goals: Decrease discomfort and Improve function Activity: Resume your previous activity Non-emergency contact: Primary Care Provider Call non-emergency contact if: you have any medication questions, your symptoms worsen and your temperature is above 101 Diet: Regular Addtl Provider Instructions: Low Oxygen Levels from Influenza A and Asthma Exacerbation: - Likely your need for oxygen was from the flu but it can cause an asthma flair as well. Given your occupational exposures in the past it can create a secondary asthma flair - Recommend to continue follow-up with your lung doctor (Dr. Trinidad). Recommend to also have a nebulizer machine at home. This is the pipe that you have been using here. Sometimes it is nice to have when you develop a cold or respiratory infection if your inhaler (Albuterol-rescue inhaler) doesn't work as well - In the meantime, recommend to continue to use your rescue inhaler as needed. This helps keep your airways open. - You may have a cough for the next week and sometimes longer. Recommend to try and cough through the day and get rid of mucus that you cough up. - We will taper down on some steroids over the next couple days. These steroids help open up the lungs as well. Thankfully there was no wheezing when listening to your lungs today. -- Prednisone 40 mg x 1 day ( start tomorrow 12/12) then 30 mg on 12/13 then 20 mg on 12/14 then 10 mg on 12/15 - You will need to finish a course of Tamiflu. You had a dose this morning so only need to take a dose tonight on 12/11 then resume twice a day on 12/12 and 12/13 then you will be done with the treatment. - Suspect that each day you should feel a little bit better. The cough can linger for a week or sometimes more. Do recommend to rest and take it easy but encourage to walk and make sure you take deep breaths. In some cases people can develop a pneumonia after having the flu so if you symptoms worsen, we would recommend you getting checked out by a medical provider. Prescriptions: New ipratropium-albuterol 0.5 mg-3 mg(2.5 mg base)/3 mL Solution For Nebulization 3 ml NEB QID PRN (Reason: SOB/Wheezing) 14 Days Qty: 160 RF: 0 oseltamivir [Tamiflu] 75 mg Capsule 75 mg PO BID Qty: 5 RF: 0 prednisone 10 mg tablet 10 mg PO DIRECTED 4 Days Qty: 10 RF: 0 benzonatate [Tessalon Perles] 100 mg Capsule 100 mg PO Q8H PRN (Reason: cough) 7 Days Qty: 21 RF: 0 Continue albuterol sulfate 90 mcg/actuation HFA aerosol inhaler 1 puff Inhalation QID PRN (Reason: Cold Symptoms) RF: 0 hydrochlorothiazide 50 mg tablet 1 tab PO DAILY RF: 0 fluticasone-salmeterol 500-50 mcg/dose blister with device 1 puff Inhalation BID RF: 0 omeprazole 20 mg capsule,delayed release(DR/EC) 1 cap PO DAILY RF: 0 Stand-Alone Forms: [facility] Discharge Orders: Discharge Order (Routine); Ordered 12/11/18 Ordered By: Kylie Meyers Admission Data Admit Date/Time: 12/09/18 14:25 Attending Provider: Obdulio Sanchez Admit Provider: Shona Hernandez Primary Care Provider: Colin Reyna Service: Medical Other Interventions: Discharge Summary Assessment (RN) Last Done: 12/11/18 13:16 Pending Studies at Discharge: No DC Date/Time DO NOT enter until pt leaves facility: 12/11/18 15:07
== END 2018-12-11 15:07 | disposition home or self-care (01) | DRG 193 ==
LOC: ED 10:52 → 4W 14:25 → SUATTDRO 14:25 → 4W 15:23
DX: Z79.899 Other long term (current) drug therapy; J10.1 Influenza due to other identified influenza virus with other respiratory manifestations; J45.909 Unspecified asthma, uncomplicated; E87.6 Hypokalemia; R51 Headache; J96.01 Acute respiratory failure with hypoxia; I10 Essential (primary) hypertension; F17.220 Nicotine dependence, chewing tobacco, uncomplicated; K21.9 Gastro-esophageal reflux disease without esophagitis; Z66 Do not resuscitate

== ENCOUNTER 2024-04-03 17:12 | Observation (INO) ==
[2024-04-03 17:48] LABS: Basophils % (auto) 1.2 %; Eosinophils # (auto) 0.32 K/uL (0.00-0.50); Eosinophils % (auto) 3.7 %; Hemoglobin 15.8 g/dl (14.0-18.0); Immature Granulocytes # (auto) 0.03 K/uL (0.01-0.20); Immature Granulocytes % (auto) 0.3 %; Lymphocytes # (auto) 1.62 K/uL (1.20-3.40); Lymphocytes % (auto) 18.8 %; Mean Corpuscular Hemoglobin 30.2 pg (25.0-34.0); Mean Corpuscular Hgb Conc 33.6 g/dL (32.0-36.0); Mean Corpuscular Volume 89.9 fL (80.0-100.0); Mean Platelet Volume 10.5 fL (9.4-12.4); Monocytes # (auto) 0.83 K/uL (0.11-0.59); Monocytes % (auto) 9.6 %; Neutrophils # (auto) 5.72 K/uL (1.40-6.50); Neutrophils % (auto) 66.4 %; Platelet Count 179 K/uL (130-400); RDW Coefficient of Variation 13.2 % (11.5-14.5); RDW Standard Deviation 43.8 fL (36.4-46.3); Red Blood Count 5.23 M/uL (4.70-6.10); White Blood Count 8.62 K/ul (4.8-10.8)
[2024-04-03 18:07] LABS: Albumin Globulin Ratio 1.6 (0.9-2); Albumin Level 4.1 gm/dl (3.4-5.0); BUN Creatinine Ratio 18.4 (10-20); Bilirubin,Total 0.5 mg/dl (0.2-1.0); Calcium 10.3 mg/dl (8.6-10.3); Creatinine Clr Calc Pharmacy 85.9 ml/min; Est GFR (African American) 86.1 ml/min; Est GFR (Non-African American) 74.3 ml/min; Globulin 2.6 gm/dl (2.5-4.0); Potassium 4.2 mmol/L (3.5-5.1); Total Protein 6.7 gm/dl (6.0-8.3)
--- NOTE | 2024-04-03 18:10 | Emergency Department Note ---
Impression & Plan Atrial fibrillation with rapid ventricular response, Shortness of breath, High serum chloride ED Provider Note NAME: HAILEE BURLESON AGE: 68 SEX: M : 1955 ARRIVES VIA: Walk-In INFORMANT: Patient ED PROVIDER(S): Luisito Alarcon DO CHIEF COMPLAINT: Shortness of breath/A-fib HPI: Patient is a 60-year-old male with a past medical history of hypertension, anxiety and prediabetes who presents to the ER for short of breath which has been going on for the past 2 weeks associated with intermittent cough. He notes this has continued. He denies any chest pain or belly pain. He does get a little lightheaded when he is up moving around. No dysuria, urgency, or frequency. He saw his PCP today who referred him in. ADDITIONAL HISTORY OBTAINED: Per HPI Chronic Medical/Social Conditions Affecting Care: Per HPI PAST MEDICAL HISTORY:See Below PAST SURGICAL HISTORY:See Below FAMILY HISTORY:See Below SOCIAL HISTORY:See Below HOME MEDICATIONS:See Below ALLERGIES:See Below VITALS:See Below PHYSICAL EXAMINATION: GENERAL: Sitting up in bed, alert, well appearing, well nourished, no distress, non-toxic EYE EXAM: normal conjunctiva. PERRL and EOM's grossly intact. OROPHARYNX: no exudate, no erythema, lips, buccal mucosa, and tongue normal and mucous membranes are moist NECK: supple, no nuchal rigidity, no adenopathy, non-tender LUNGS: Clear to auscultation. Normal chest wall mechanics HEART: Tachycardic and irregular regular, S1 normal and S2 normal ABDOMEN: abdomen soft, non-tender, normo-active bowel sounds, no masses, no rebound or guarding. BACK: Back is symmetrical on inspection and there is no deformity, no midline tenderness, no CVA tenderness. SKIN: no rashes and no bruising UPPER EXTREMITIES: upper extremities are grossly normal. LOWER EXTREMITIES: No pitting edema. NEURO EXAM: Normal sensorium, cranial nerves II-XII grossly intact, normal speech, no gross weakness of arms, no gross weakness of legs. MEDICAL DECISION MAKING: Patient is a 68-year-old male who presents the ER for the above-stated complaint. IV was established blood work was obtained. Labs show no significant leukocytosis or anemia. BMP with slightly elevated chloride. LFTs bilirubin was unremarkable. Troponin was negative. Mag was normal. TSH unremarkable. Patient was given IV labetalol and heart rate trended down to the 90s to 80s. Patient was updated at bedside. Discussed case with the hospitalist for further evaluation management treatment. Consults/Care Managements Discussions: Per [facility] Triage Nursing notes reviewed. Limited review of prior medical records performed Vital Signs: reviewed and remarkable for tachy Differential diagnosis: Cardiac ischemia, aortic dissection, pulmonary embolism, pneumothorax, pneumonia, pericarditis, myocarditis, esophageal rupture, GERD, cholecystitis, pancreatitis, musculoskeletal, as well as other pathologies. ER treatment provided: See below Diagnostics interpreted by me include EKG and cardiac monitoring as listed below: -Cardiac Monitoring: An order was placed for continuous cardiac monitoring. The monitor shows a rate of 122 with A-fib rhythm. -ECG: A-fib RVR rate of 108 Normal axis No PVCs QTc 420 -Laboratory studies:Interpreted by me as stated above in MDM and shown below. Imaging studies: Xrays: As interpreted by me:none CTs show: none Procedures:none Critical Care: None Past Med/Surg History Problem List (Updated 04/03/24 @ 21:37 by Luisito Alarcon DO) High serum chloride (Acute) Shortness of breath (Acute) Asthma exacerbation Atrial fibrillation with rapid ventricular response (Acute) Generalized headaches Prediabetes Hypertension (Chronic) GERD (gastroesophageal reflux disease) (Chronic) Asthma (Chronic) Psoriasis (Chronic) Anxiety disorder (Chronic) Ankle pain, left Migraine headache Medical History Acute respiratory failure with hypoxia Influenza A Migraine headache Surgical History H/O knee surgery Family History Sister COPD (chronic obstructive pulmonary disease) Asthma Brother COPD (chronic obstructive pulmonary disease) Lung cancer Coronary heart disease Brain tumor Mother Breast cancer Lung cancer Father Lung cancer Prostate cancer Other GERD (gastroesophageal reflux disease) Hypertension Social History (Updated 12/05/23 @ 07:03 by RONN Hall) Smoking Status: Never smoker Tobacco Type: Smokeless Tobacco (Dip or Chew) Second Hand Exposure: No; Do You Dip or Chew Tobacco: Yes; Hx Alcohol Use: No Hx Substance Use: No Preferred Language: Georgian Communication Ability: Effective Visual Impairment: No Limitations Hearing Ability: Normal Day Camp 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 [employer] Required: No Beliefs That Will Affect Care: None marital status: Current Living Situation: Spouse and Family current occupational status: retired Feels Safe at Home: Yes Diet: regular caffeine: Yes Dental Care, Regularly: No Physical Activity Frequency: 1-2 Times per Week Seatbelt Use: always Assistive Devices: Glasses and Oxygen - Continuous Allergies Allergies Allergy/AdvReac Type Severity Reaction Status Date / Time No Known Drug Allergies Allergy Verified 04/03/24 15:37 Home Meds Home Medications Medication Instructions Recorded Confirmed albuterol sulfate 90 mcg/actuation 2 puff inhalation UD PRN Cold 04/03/24 04/03/24 aerosol inhaler Symptoms Previous Rx's Medication Instructions Recorded fluticasone 500 mcg-salmeterol 50 1 inh inhalation BID #3 Inhalers 08/31/23 mcg/dose blistr powdr for inhalation amlodipine 2.5 mg tablet 2.5 mg PO DAILY #30 tabs 10/13/23 rosuvastatin 10 mg tablet 10 mg PO DAILY #90 tabs 01/04/24 albuterol sulfate 2.5 mg/3 mL 1.25 mg (1.5 mL) inhalation TID 04/03/24 (0.083 %) solution for nebulization #15 mL Results & Data (ED) Vital Signs Vital Signs - 24 hr 04/03/24 17:17 04/03/24 17:26 04/03/24 17:28 Temperature 36.8 C Temperature Source Oral Pulse Rate 137 H 114 H Pulse Rate [Left Finger] Pulse Rate from SpO2 Sensor Respiratory Rate 18 15 Blood Pressure 124/100 137/106 H Blood Pressure [Right Arm] Blood Pressure Mean 108 118 Blood Pressure Mean [Right Arm] Blood Pressure Position Sitting Pulse Oximetry 94 Oxygen Delivery Method Room Air Sepsis Recent Fever Within 48 Hours No Sepsis New/Unexplained Change in Mental Status No Sepsis Action Taken by Nursing No Action Required 04/03/24 17:28 04/03/24 17:30 04/03/24 17:30 Temperature Temperature Source Pulse Rate 102 H 109 H Pulse Rate [Left Finger] Pulse Rate from SpO2 Sensor 93 H Respiratory Rate 27 H Blood Pressure Blood Pressure [Right Arm] Blood Pressure Mean Blood Pressure Mean [Right Arm] Blood Pressure Position Pulse Oximetry 94 98 Oxygen Delivery Method Room Air Sepsis Recent Fever Within 48 Hours Sepsis New/Unexplained Change in Mental Status Sepsis Action Taken by Nursing 04/03/24 17:30 04/03/24 18:00 04/03/24 18:16 Temperature Temperature Source Pulse Rate 103 H 95 H Pulse Rate [Left Finger] 98 H Pulse Rate from SpO2 Sensor 110 H 86 Respiratory Rate 18 15 20 Blood Pressure Blood Pressure [Right Arm] 117/66 Blood Pressure Mean Blood Pressure Mean [Right Arm] 83 Blood Pressure Position Pulse Oximetry 95 93 92 Oxygen Delivery Method Sepsis Recent Fever Within 48 Hours Sepsis New/Unexplained Change in Mental Status Sepsis Action Taken by Nursing 04/03/24 18:16 04/03/24 18:16 04/03/24 18:17 Temperature Temperature Source Pulse Rate 97 H 93 H Pulse Rate [Left Finger] Pulse Rate from SpO2 Sensor 94 H Respiratory Rate 21 Blood Pressure 117/66 117/66 Blood Pressure [Right Arm] Blood Pressure Mean 91 Blood Pressure Mean [Right Arm] Blood Pressure Position Pulse Oximetry 93 Oxygen Delivery Method Sepsis Recent Fever Within 48 Hours Sepsis New/Unexplained Change in Mental Status Sepsis Action Taken by Nursing 04/03/24 18:30 04/03/24 18:37 04/03/24 18:37 Temperature Temperature Source Pulse Rate 96 H 76 Pulse Rate [Left Finger] Pulse Rate from SpO2 Sensor 97 H 79 Respiratory Rate 18 17 Blood Pressure 131/86 Blood Pressure [Right Arm] Blood Pressure Mean 110 Blood Pressure Mean [Right Arm] Blood Pressure Position Pulse Oximetry 95 93 Oxygen Delivery Method Sepsis Recent Fever Within 48 Hours Sepsis New/Unexplained Change in Mental Status Sepsis Action Taken by Nursing 04/03/24 18:37 04/03/24 19:00 04/03/24 19:00 Temperature Temperature Source Pulse Rate 76 74 Pulse Rate [Left Finger] Pulse Rate from SpO2 Sensor 79 Respiratory Rate 19 Blood Pressure 131/86 117/97 Blood Pressure [Right Arm] Blood Pressure Mean 101 Blood Pressure Mean [Right Arm] Blood Pressure Position Pulse Oximetry 94 Oxygen Delivery Method Sepsis Recent Fever Within 48 Hours Sepsis New/Unexplained Change in Mental Status Sepsis Action Taken by Nursing Laboratory Data 04/03/24 17:29 04/03/24 17:29 Lab Results 04/03/24 Range/Units 17:29 WBC 8.62 (4.8-10.8) K/ul RBC 5.23 (4.70-6.10) M/uL Hgb 15.8 (14.0-18.0) g/dl Hct 47.0 (42.0-52.0) % MCV 89.9 (80.0-100.0) fL MCH 30.2 (25.0-34.0) pg MCHC 33.6 (32.0-36.0) g/dL RDW Std Deviation 43.8 (36.4-46.3) fL RDW Coeff of Mason 13.2 (11.5-14.5) % Plt Count 179 (130-400) K/uL MPV 10.5 (9.4-12.4) fL Immature Gran % (Auto) 0.3 % Neut % (Auto) 66.4 % Lymph % (Auto) 18.8 % Daniels % (Auto) 9.6 % Eos % (Auto) 3.7 % Baso % (Auto) 1.2 % Neut # (Auto) 5.72 (1.40-6.50) K/uL Lymph # (Auto) 1.62 (1.20-3.40) K/uL Daniels # (Auto) 0.83 H (0.11-0.59) K/uL Eos # (Auto) 0.32 (0.00-0.50) K/uL Baso # (Auto) 0.10 (0.00-0.20) K/uL Immature Gran # (Auto) 0.03 (0.01-0.20) K/uL Sodium 141 (136-145) mmol/L Potassium 4.2 (3.5-5.1) mmol/L Chloride 111 H (98-107) mmol/L Carbon Dioxide 25 (21-32) mmol/L Anion Gap 5 (3-11) BUN 19 (6-23) mg/dl Creatinine 1.03 (0.6-1.4) mg/dl Est Cr Clr Drug Dosing 85.9 ml/min Est GFR ( Amer) 86.1 ml/min Est GFR (Non-Af Amer) 74.3 ml/min BUN/Creatinine Ratio 18.4 (10-20) Glucose 89 (70-99(Fasting)) mg/dl Calcium 10.3 (8.6-10.3) mg/dl Magnesium 2.1 (1.7-2.4) mg/dl Total Bilirubin 0.5 (0.2-1.0) mg/dl AST 17 (13-39) U/L ALT 13 (7-52) U/L Alkaline Phosphatase 89 (34-104) U/L Troponin I High Sens 4.3 (0-20) pg/ml Total Protein 6.7 (6.0-8.3) gm/dl Albumin 4.1 (3.4-5.0) gm/dl Globulin 2.6 (2.5-4.0) gm/dl Albumin/Globulin Ratio 1.6 (0.9-2) Lipase 10 L (11-82) U/L TSH 2.586 (0.300-4.500) uIu/ml Administered Medications Discontinued Medications Azithromycin (Azithromycin 250 Mg Tab) 500 mg PO NOW ONE Stop: 04/03/24 19:39 Last Admin: 04/03/24 20:04 Dose: 500 mg Documented By: SHANTE Diltiazem HCl (Diltiazem Hcl 30 Mg Tab) 30 mg PO NOW ONE Stop: 04/03/24 19:46 Last Admin: 04/03/24 20:04 Dose: 30 mg Documented By: SHANTE Metoprolol Tartrate (Metoprolol Tartrate 1 Mg/Ml Vial) 2.5 mg IV NOW STA Stop: 04/03/24 18:04 Last Admin: 04/03/24 18:17 Dose: 2.5 mg Documented By: JESÚS Prednisone (Prednisone 20 Mg Tab) 40 mg PO NOW STA Stop: 04/03/24 19:30 Last Admin: 04/03/24 20:04 Dose: 40 mg Documented By: SHANTE Imaging Data Radiologist's Impression: Chest X-Ray 04/03/24 17:20 XR chest 1V portable CLINICAL HISTORY: Chest pain, nonspecific TECHNIQUE: Single frontal radiograph of the chest was obtained. Comparison: Comparison is made to chest radiograph 12/09/2018 FINDINGS: No lines and tubes are seen. The cardiomediastinal silhouette is normal. The lungs are clear. No evidence of pleural effusion or pneumothorax. IMPRESSION: No acute chest disease. ACT 112: Negative or not required by law. Electronically signed by: Obdulio Humphries M.D. 04/03/2024 6:30 PM Discharge Plan Visit Data Chief Complaint: Referred by Doctor Stated Complaint: HEART IN A FIB ED Provider: Luisito Alarcon Discharge Problem: Atrial fibrillation with rapid ventricular response, Shortness of breath, High serum chloride Patient Disposition: Admitted As Inpatient Discharge Instructions Interventions: ED Discharge Assessment Last Done: 04/03/24 21:04
[2024-04-03 18:12] LABS: Troponin I High Sensitivity 4.3 pg/ml (0-20)
[2024-04-03] MEDS: METOPROLOL TARTRATE 1 MG/ML VIAL IV STA (18:17)
--- NOTE | 2024-04-03 18:31 | XRay Report ---
XR chest 1V portable CLINICAL HISTORY: Chest pain, nonspecific TECHNIQUE: Single frontal radiograph of the chest was obtained. Comparison: Comparison is made to chest radiograph 12/09/2018 FINDINGS: No lines and tubes are seen. The cardiomediastinal silhouette is normal. The lungs are clear. No evid ence of pleural effusion or pneumothorax. IMPRESSION: No acute chest disease. ACT 112: Negative or not required by law. Electronically signed by: Obdulio Humphries M.D. 04/03/2024 6:30 PM
--- NOTE | 2024-04-03 19:00 | History & Physical Report ---
Date of Service April 03, 2024 Assessment & Plan (1) Atrial fibrillation with rapid ventricular response: Plan: Will initially avoid BB due to asthma. Start diltiazem 30mg TID for rate control. [id number] = 2; start Eliquis 5mg PO BID TTE TSH Aim Mg > 2, K > 4 (2) Asthma exacerbation: Plan: Increased cough and shortness of breath Azithromycin 500mg PO daily for 3 days Levalbuterol/ipratropium q6h PRN Fluticasone/salmeterol 1 INH BID Prednisone 40mg PO daily for 3-5 days (3) Hypertension: Plan: Switch amlodipine for diltiazem as above Plan VTE Prophylaxis - Eliquis Diet - regular Disposition - observation to med/tele Admission and Anticipated Discharge Date Admission Date: April 03, 2024 History of Present Illness Chief Complaint: Shortness of breath Primary Care Provider: OMI Juan Ketan Villagran is a 68 year old male who presents to the ER with shortness of breath and cough. While at the PCP visit today for these symptoms he was noted to be in atrial fibrillation therefore he was sent ot the ER for ongoing management. He notes his symptoms started about 2 weekends ago after being exposed to loose blown insulation at his daughter house with nasal congestion, cough and ear ache started since then but getting progressively worse. He felt it was his usual asthma exacerbation and used a nebulizer on Tue/ which helped. Cough got much worse yesterday and feels a little better today. He is yet to go on steroids and notes when he uses steroids it usually clear it up quite quickly. He has no history of atrial fibrillation. No current chest pain, dizziness. He does note shortness of breath on exertion. No prior GA or stroke. Allergies Allergy/AdvReac Type Severity Reaction Status Date / Time No Known Drug Allergies Allergy Verified 04/03/24 15:37 Home Medications Medication Instructions Recorded Confirmed Type fluticasone 500 mcg-salmeterol 50 1 inh inhalation BID #3 Inhalers 08/31/23 04/03/24 Rx mcg/dose blistr powdr for inhalation amlodipine 2.5 mg tablet 2.5 mg PO DAILY #30 tabs 10/13/23 04/03/24 Rx rosuvastatin 10 mg tablet 10 mg PO DAILY #90 tabs 01/04/24 04/03/24 Rx albuterol sulfate 2.5 mg/3 mL 1.25 mg (1.5 mL) inhalation TID 04/03/24 04/03/24 Rx (0.083 %) solution for nebulization #15 mL albuterol sulfate 90 mcg/actuation 2 puff inhalation UD PRN Cold 04/03/24 04/03/24 History aerosol inhaler Symptoms Past Med/Surg History Problem List (Updated 04/03/24 @ 21:37 by Luisito Alarcon DO) High serum chloride (Acute) Shortness of breath (Acute) Asthma exacerbation Atrial fibrillation with rapid ventricular response (Acute) Generalized headaches Prediabetes Hypertension (Chronic) GERD (gastroesophageal reflux disease) (Chronic) Asthma (Chronic) Psoriasis (Chronic) Anxiety disorder (Chronic) Ankle pain, left Migraine headache Medical History Acute respiratory failure with hypoxia Influenza A Migraine headache Surgical History H/O knee surgery Family History Sister COPD (chronic obstructive pulmonary disease) Asthma Brother COPD (chronic obstructive pulmonary disease) Lung cancer Coronary heart disease Brain tumor Mother Breast cancer Lung cancer Father Lung cancer Prostate cancer Other GERD (gastroesophageal reflux disease) Hypertension Social History (Updated 12/05/23 @ 07:03 by RONN Hall) Smoking Status: Former smoker Tobacco Type: Smokeless Tobacco (Dip or Chew) Second Hand Exposure: No; Do You Dip or Chew Tobacco: Yes; Tobacco Cessation Education Requested by Patient: No Hx Alcohol Use: No Hx Substance Use: No Preferred Language: Turkish Communication Ability: Effective Visual Impairment: No Limitations Hearing Ability: Normal 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 Mud Analysis Required: No Beliefs That Will Affect Care: None marital status: Current Living Situation: Spouse and Family current occupational status: retired Other Information That Helps Us Care for You: No Feels Safe at Home: Yes Safety Concerns: Feels Safe At This Time Diet: regular caffeine: Yes Dental Care, Regularly: No Physical Activity Frequency: 1-2 Times per Week Seatbelt Use: always Assistive Devices: Glasses Review of Systems Review of Systems: All systems reviewed & are unremarkable except as noted in HPI & below Physical Exam Constitutional: WD/WN, vitals as above ENMT: external ear and nose normal, oropharynx normal Respiratory: normal respiratory effort; no respiratory distress Auscultation: + wheezes (mild end expiratory posterior) Cardiovascular: Rate/Rhythm: + tachycardic and + irregularly irregular Heart Sounds: no murmur Extremities: normal capillary refill; no calf t enderness and no pedal edema Gastrointestinal (Abdomen): normal bowel sounds, soft, nontender, no hepatosplenomegaly Musculoskeletal: no cyanosis or clubbing, extremities motor strength 5/5 Skin: no rashes, warm and dry Neurologic: moves all extremities and awake; not confused Psychiatric: A+Ox3, euthymic affect Results & Data Results & Data Vital Signs (Past 12 Hours) Vital Signs Temp Pulse Pulse Resp BP BP Pulse Ox 04/03/24 18:17 93 H 117/66 04/03/24 18:16 98 H 20 117/66 92 04/03/24 17:30 98 04/03/24 17:30 109 H 04/03/24 17:17 36.8 C 137 H 18 124/100 94 O2 Del Method 04/03/24 18:17 04/03/24 18:16 04/03/24 17:30 Room Air 04/03/24 17:30 04/03/24 17:17 Room Air Laboratory Results Abnormal lab results 04/03/24 Range/Units 17:29 Norton # (Auto) 0.83 H (0.11-0.59) K/uL Chloride 111 H (98-107) mmol/L Lipase 10 L (11-82) U/L Diagnostic Findings XR chest 1V portable CLINICAL HISTORY: Chest pain, nonspecific TECHNIQUE: Single frontal radiograph of the chest was obtained. Comparison: Comparison is made to chest radiograph 12/09/2018 FINDINGS: No lines and tubes are seen. The cardiomediastinal silhouette is normal. The lungs are clear. No evidence of pleural effusion or pneumothorax. IMPRESSION: No acute chest disease. Medications Administered ER Medications Given: Metoprolol 2.5mg IV ECG Rate (beats per minute): 108 Rhythm: atrial fibrillation Findings: no acute ischemic change Comparison ECG Date: from (Dec 10, 2018) Change: the following changes noted (a. fib RVR is new) Code Status & VTE Plan Code Status Full VTE Prophylaxis Plan VTE Prophylaxis will be ordered: Yes PG Care Time/CCT Total # of Minutes Spent Total Time Spent with Patient: Total time spent is greater than 50% in coordination of care (as documented) at patient's floor/unit and/or counseling patient: Coding Level of Care Code 59997 INT INP/OBS CARE 2/55MIN Diagnoses Atrial fibrillation with rapid ventricular response I48.91 Asthma exacerbation J45.901 Hypertension I10
[2024-04-03 19:26] LABS: Magnesium 2.1 mg/dl (1.7-2.4)
[2024-04-03] MEDS: predniSONE 20 MG TAB PO STA (20:04)
[2024-04-03] MEDS: AZITHROMYCIN 250 MG TAB PO ONE (20:04)
[2024-04-03] MEDS: dilTIAZem HCL 30 MG TAB PO ONE (20:04)
[2024-04-03 20:14] LABS: Thyroid Stimulating Hormone 2.586 uIu/ml (0.300-4.500)
[2024-04-03] MEDS ORDERED: ACETAMINOPHEN 325 MG TAB PO PRN (21:04)
[2024-04-03] MEDS: APIXABAN 5 MG TABLET PO SCH (22:24)
[2024-04-03] MEDS ORDERED: IPRATROPIUM BROMIDE NEB SOLN 0.02% 0.5MG/2.5ML VIAL NEB PRN (23:20)
[2024-04-03] MEDS ORDERED: LEVALBUTEROL 1.25 MG/3 ML NEB NEB PRN (23:20)
[2024-04-04] MEDS: dilTIAZem HCL 30 MG TAB PO SCH (00:21)
[2024-04-04 07:38] LABS: Basophils # (auto) 0.01 K/uL (0.00-0.20); Basophils % (auto) 0.1 %; Eosinophils # (auto) 0.01 K/uL (0.00-0.50); Eosinophils % (auto) 0.1 %; Hematocrit (blood only) 47.7 % (42.0-52.0); Hemoglobin 15.8 g/dl (14.0-18.0); Immature Granulocytes # (auto) 0.04 K/uL (0.01-0.20); Immature Granulocytes % (auto) 0.5 %; Lymphocytes # (auto) 0.96 K/uL (1.20-3.40); Lymphocytes % (auto) 11.2 %; Mean Corpuscular Hemoglobin 29.4 pg (25.0-34.0); Mean Corpuscular Hgb Conc 33.1 g/dL (32.0-36.0); Mean Corpuscular Volume 88.8 fL (80.0-100.0); Mean Platelet Volume 10.6 fL (9.4-12.4); Monocytes # (auto) 0.26 K/uL (0.11-0.59); Neutrophils # (auto) 7.29 K/uL (1.40-6.50); Neutrophils % (auto) 85.1 %; Platelet Count 204 K/uL (130-400); RDW Coefficient of Variation 13.2 % (11.5-14.5); RDW Standard Deviation 43.1 fL (36.4-46.3); Red Blood Count 5.37 M/uL (4.70-6.10); White Blood Count 8.57 K/ul (4.8-10.8)
[2024-04-04 07:49] LABS: BUN Creatinine Ratio 22.6 (10-20); Calcium 10.3 mg/dl (8.6-10.3); Est GFR (African American) 104.3 ml/min; Potassium 4.3 mmol/L (3.5-5.1)
[2024-04-04] MEDS ORDERED: methylPREDNISolone 1000 MG/16 ML IV SCH (08:00)
--- NOTE | 2024-04-04 08:09 | Electrocardiogram Report ---
Test Reason : Blood Pressure : / mmHG Vent. Rate : 108 BPM Atrial Rate : 000 BPM P-R Int : 000 ms QRS Dur : 074 ms QT Int : 314 ms P-R-T Axes : 000 029 -36 degrees QTc Int : 420 ms Atrial fibrillation with rapid ventricular response Nonspecific T wave abnormality Lateral leads Abnormal ECG When compared with ECG of 10-DEC-2018 07:37, Atrial fibrillation has replaced Sinus rhythm HR has increased by 28 bpm Confirmed by Jose Wen ([id number]) on 04/04/2024 8:09:02 AM Referred By: Elyssa Monte Confirmed By:Jose Wen
[2024-04-04] MEDS: FLUTICASONE/VILANTEROL 100/25MCG 14 PUFFS/INHALER INH SCH (08:24)
[2024-04-04] MEDS: AZITHROMYCIN 250 MG TAB PO SCH (08:25)
[2024-04-04] MEDS: dilTIAZem HCl 60 MG TAB PO SCH (08:25)
[2024-04-04] MEDS: methylPREDNISolone 40 MG in SYRINGE 0 ML IV SCH (08:25)
[2024-04-04] MEDS: ROSUVASTATIN CALCIUM 10 MG TAB PO SCH (08:25)
[2024-04-04] MEDS ORDERED: dilTIAZem HCL 30 MG TAB PO SCH (09:00)
[2024-04-04] MEDS ORDERED: amLODIPine BESYLATE 5 MG TAB PO SCH (09:00)
[2024-04-04] MEDS ORDERED: predniSONE 20 MG TAB PO SCH (09:00)
--- NOTE | 2024-04-04 10:50 | Hospitalist Progress Note ---
Date of Service April 04, 2024 Assessment & Plan (1) Atrial fibrillation with rapid ventricular response: Plan: New onset. Telemetry. Cardiac echo report and thyroid studies pending. Diltiazem uptitrated today for better heart rate control. Amlodipine has been discontinued. He is now on Eliquis. (2) Asthma exacerbation: Plan: Parenteral steroid therapy while hospitalized. Nebulizer treatments. (3) Hypertension: Plan: Diltiazem replaces amlodipine. Will follow Plan Hopefully home tomorrow, April 05 Admission and Anticipated Discharge Date Admission Date: April 03, 2024 Subjective Alert and oriented. Anxious to go home but he should stay another day while the diltiazem was uptitrated. Cardiac echo was completed this morning and the report is pending. Free T3 and free T4 levels ordered and pending. He will receive parenteral steroid therapy while hospitalized. Hopefully he can go home tomorrow, April 05 Review of Systems 2 Review of Systems: Constitutional-no fever or chills ENT-no blurred vision, no double vision, no epistaxis, no sore throat Respiratory-productive cough. No hemoptysis. Some wheezing. No shortness of breath Cardiac-no palpitations, no chest pain, no syncope GI-no nausea, vomiting, diarrhea, melena, hematochezia -no urinary retention, no urinary incontinence, no dysuria, no hematuria Musculoskeletal-no joint pain, no muscle tenderness Skin-no bruising, no rashes, no pruritus Neuro-no isolated weakness, no paresthesia, no weakness Psych-no depression, no anxiety Physical Exam 2 Physical Exam: General-alert and oriented x3, no fever, no chills HEENT-head atraumatic and normocephalic, pupils equal and reactive to light, extraocular muscles intact Neck-no lymphadenopathy or thyromegaly, trachea midline Chest-midline rhonchi with forced expiration. Faint bilateral expiratory wheezes. No dullness to percussion Cardiac-mildly tachycardic irregular rhythm. Normal S1 and S2 Abdomen-normal bowel sounds, no hepatosplenomegaly Extremities-no cyanosis, clubbing, or edema Neuro-cranial nerves II through XII intact, motor and sensory function within normal limits, strength symmetrical, no focal deficits Psych-normal affect, normal mood Results & Data Results & Data Vital Signs (Past 12 Hours) Vital Signs Temp Pulse Pulse Resp BP BP Pulse Ox 04/04/24 07:52 04/04/24 07:40 36.3 C L 102 H 14 128/81 94 04/04/24 07:21 71 04/04/24 04:12 36.3 C L 91 H 20 112/72 92 04/04/24 00:11 103 H 04/03/24 23:55 04/03/24 23:55 36.4 C L 109 H 16 148/85 H 93 04/03/24 23:03 72 O2 Del Method 04/04/24 07:52 Room Air 04/04/24 07:40 Room Air 04/04/24 07:21 04/04/24 04:12 Room Air 04/04/24 00:11 04/03/24 23:55 Room Air 04/03/24 23:55 Room Air 04/03/24 23:03 Laboratory Results 04/04/24 07:13 04/04/24 07:13 PG Care Time/CCT Total # of Minutes Spent Total Time Spent with Patient: Total time spent is greater than 50% in coordination of care (as documented) at patient's floor/unit and/or counseling patient: Coding Level of Care Code 89878 SUB INP/OBS CARE 3/50MIN Diagnoses Atrial fibrillation with rapid ventricular response I48.91 Asthma exacerbation J45.901 Hypertension I10
--- NOTE | 2024-04-04 15:15 | XCELERA ---
[id number]
[2024-04-05 06:26] LABS: BUN Creatinine Ratio 30.2 (10-20); Calcium 10.4 mg/dl (8.6-10.3); Creatinine Clr Calc Pharmacy 105.2 ml/min; Est GFR (African American) 93.8 ml/min; Est GFR (Non-African American) 80.9 ml/min; Potassium 4.5 mmol/L (3.5-5.1)
--- NOTE | 2024-04-05 07:44 | Electrocardiogram Report ---
Test Reason : Blood Pressure : / mmHG Vent. Rate : 056 BPM Atrial Rate : 048 BPM P-R Int : 000 ms QRS Dur : 088 ms QT Int : 444 ms P-R-T Axes : 000 003 020 degrees QTc Int : 428 ms Atrial fibrillation with slow ventricular response Abnormal ECG When compared with ECG of 03-APR-2024 17:23, Vent. rate has decreased BY 52 BPM Nonspecific T wave abnormality Lateral leads no longer present Confirmed by Jose Wen ([id number]) on 04/05/2024 7:44:24 AM Referred By: Elyssa Monte Confirmed By:Jose Wen
--- NOTE | 2024-04-05 11:50 | Discharge Summary ---
Date of Service April 05, 2024 Admission HPI Per Admitting Provider Ketan Villagran is a 68 year old male who presents to the ER with shortness of breath and cough. While at the PCP visit today for these symptoms he was noted to be in atrial fibrillation therefore he was sent ot the ER for ongoing management. He notes his symptoms started about 2 weekends ago after being exposed to loose blown insulation at his daughter house with nasal congestion, cough and ear ache started since then but getting progressively worse. He felt it was his usual asthma exacerbation and used a nebulizer on Tue/ which helped. Cough got much worse yesterday and feels a little better today. He is yet to go on steroids and notes when he uses steroids it usually clear it up quite quickly. He has no history of atrial fibrillation. No current chest pain, dizziness. He does note shortness of breath on exertion. No prior [place] or stroke. Principal Diagnosis New onset atrial fibrillation with rapid ventricular rate, acute exacerbation intrinsic asthma Discharge Exam General-alert and oriented x3, no fever, no chills HEENT-head atraumatic and normocephalic, pupils equal and reactive to light, extraocular muscles intact Neck-no lymphadenopathy or thyromegaly, trachea midline Chest-wheezing has resolved. No dullness to percussion Cardiac-normal rate, irregular rhythm. Normal S1 and S2 Abdomen-normal bowel sounds, no hepatosplenomegaly Extremities-no cyanosis, clubbing, or edema Neuro-cranial nerves II through XII intact, motor and sensory function within normal limits, strength symmetrical, no focal deficits Psych-normal affect, normal mood Discharge Data Allergies Allergy/AdvReac Type Severity Reaction Status Date / Time No Known Drug Allergies Allergy Verified 04/03/24 15:37 Consultations 04/03/24 18:47 ED Decision to Admit Stat Hospital Course (1) Atrial fibrillation with rapid ventricular response: New onset. Telemetry. Cardiac echo appears normal. Thyroid studies are unremarkable. Diltiazem has been switched to the CD formulation. Amlodipine has been discontinued. He is now on Eliquis. (2) Asthma exacerbation: Parenteral steroid therapy while hospitalized. Prednisone tapering dose at discharge. Continue nebulizer treatments while hospitalized. (3) Hypertension: Diltiazem replaces amlodipine. Stable Plan Home today, April 05 Total Time Total Time Spent Total Time Spent (In Minutes): 45 minutes Discharge Plan Discharge Items Patient Disposition: Home - Self-Care Reason For Visit: A. FIB RVR, ASTHMA EXACERBATION Discharge Diagnosis: New onset atrial fibrillation with rapid ventricular rate, acute exacerbation intrinsic asthma Activity: Resume your previous activity Non-emergency contact: Primary Care Provider Call non-emergency contact if: your symptoms worsen Follow-up/Referrals: Elyssa Monte CRNP [Primary Care Provider] - Diet: Regular and Heart Healthy Addtl Attending Provider Instructions: Take diltiazem CD once daily for heart rate and blood pressure control. Amlodipine has been discontinued. Take Eliquis (apixaban) twice daily for blood thinner Pending Studies at Discharge: No Stand-Alone Forms: My E[employer] App, Smoking Cessation Medications and DC Order Prescriptions: New diltiazem HCl 180 mg Capsule,Extended Release 24hr 180 mg PO QAM Qty: 30 0RF Eliquis 5 mg Tablet 5 mg PO BID Qty: 60 0RF prednisone 10 mg tablet See Rx Instructions .ROUTE .COMPLEX Qty: 12 0RF Rx Instructions: 10 mg orally 3 times a day for 2 days, then 10 mg twice a day for 2 days, then 10 mg once a day for 2 days, then stop Continued rosuvastatin 10 mg tablet 10 mg PO DAILY Qty: 90 3RF fluticasone propion-salmeterol 500-50 mcg/dose blister with device 1 inh Inhalation BID Qty: 3 3RF Rx Instructions: One inhalation b.i.d. albuterol sulfate 2.5 mg /3 mL (0.083 %) solution for nebulization 1.25 mg inhalation TID Qty: 15 2RF albuterol sulfate 90 mcg/actuation HFA aerosol inhaler 2 puff Inhalation UD PRN (Reason: Cold Symptoms) Rx Instructions: 2 puff inhal qid no fill history listed for medication Discontinued amlodipine 2.5 mg tablet 2.5 mg PO DAILY Qty: 30 5RF Discharge Orders: Discharge Order (Routine); Ordered 04/05/24 Ordered By: Jose Roberto Bryan Admission Data Admit Date/Time: 04/03/24 19:02 Attending Provider: Jose Roberto Bryan Admit Provider: Tavo Espinal Primary Care Provider: Elyssa Monte Other Providers: Shaka Willis Coding Level of Care Code 67043 INP/OBS DISCH >30 MIN Diagnoses Atrial fibrillation with rapid ventricular response I48.91 Asthma exacerbation J45.901 Hypertension I10
[2024-04-05] MEDS ORDERED: dilTIAZem HCL 180 MG CAPCR PO SCH (14:00)
== END 2024-04-05 12:34 | disposition home or self-care (01) ==
LOC: EDINP 17:12 → ED 17:12 → SUATTDRO 19:02 → 2N 21:04